=== PATIENT | female | born 1975 | race Hispanic/Latino ===

== ENCOUNTER 2017-04-08 12:45 | Day surgery (SDC) | payer OTHER ==
[~2017-04-08] VITALS: Ht 162.6 cm; Wt 93.0 kg
[~2017-04-08 12:45] MED LIST: 0.9% Sodium Chloride 1,000 ML IV SCH; NORE-74 PO; NORE-82 PO; OMEP20TA86 PO; Sodium Chloride LOK Flush 10 mL Syringe IV PRN; fentaNYL-PF 50 mCg/mL 2 mL Inj IVPUSH PRN
[2017-04-08 13:10] VITALS: BP 120/73; PULSE 80; RESP 17; O2SAT 98
[2017-04-08 14:34] VITALS: BP 116/69; PULSE 68; RESP 16; O2SAT 99
[2017-04-08 14:44] VITALS: BP 105/63; PULSE 60; RESP 16; O2SAT 100
[2017-04-08 14:50] VITALS: BP 103/73; PULSE 69; RESP 16; O2SAT 100
--- NOTE | 2017-04-08 18:03 | ENDO ---
[address] [address] ENDOSCOPY PROCEDURE PATIENT: ROSANGELA BEST : 1975 MR#: [id number] ADMIT: 04/08/2017 JOB ID: [id number] DATE: 04/08/2017 PROCEDURE: Esophagogastroduodenoscopy. INDICATION: Gastroesophageal reflux. Patient's ASA classification is I. Mallampati score is II. MEDICATIONS: Versed 6 mg, fentanyl 125 mcg. INSTRUMENT USED: GIF-H180J. PROCEDURE DETAILS: After informed consent was obtained, the patient was brought into the GI suite, where she was placed on oxygen via nasal cannula and monitored with continuous pulse oximeter, telemetry, and blood pressure monitoring. A time-out was performed. Then, she was placed in a left lateral decubitus position. Medications were administered for sedation. The standard EGD scope was then inserted through the bite block and advanced under direct visualization to the second portion of duodenum without difficulty. FINDINGS: 1. Normal-appearing duodenal bulb, first and second portion. 2. Normal-appearing pylorus, antrum, and gastric body. 3. Retroflexed views in the gastric body revealed a normal-appearing cardia and fundus. 4. Multiple random biopsies were obtained throughout the antrum and body of stomach. 5. Normal-appearing GE junction with a regular Z-line. 6. Normal-appearing esophagus. IMPRESSION: Normal esophagogastroduodenoscopy exam to second portion of duodenum. RECOMMENDATIONS: 1. Continue omeprazole daily. 2. Reflux precautions as discussed. 3. Weight loss was encouraged. COMPLICATIONS: None. ESTIMATED BLOOD LOSS: Less than 5 mL. PROCEDURE PERFORMED: Colonoscopy. INDICATION: Abdominal pain. Please see above for ASA classification, Mallampati score, and medications. INSTRUMENT USED: [id number]-H180AL. Prep quality was good. PROCEDURE DETAILS: After completion of the EGD exam, the patient was turned and then a digital rectal exam was performed which was unremarkable. The colonoscope was then inserted into the rectum and advanced under direct visualization to the cecum, which was identified by the presence of the ileocecal valve and appendiceal orifice. Once the cecum was reached, colonoscope was withdrawn back into the rectum as mucosa and lumen were examined. In the rectum, retroflexion was performed. Following retroflexion, remaining air in the rectum was suctioned, and procedure was completed. FINDINGS: Normal exam from rectum to cecum. IMPRESSION: Normal colonoscopy. RECOMMENDATIONS: Follow up in GI clinic. COMPLICATIONS: None. ESTIMATED BLOOD LOSS: Zero.
--- NOTE | 2017-04-12 11:33 | PATH ---
SURGICAL PATHOLOGY Attending Physician:Bruno Haley CASE STATUS: Signed Out PATIENT NAME: ROSANGELA BEST PID: [id number] : 1975 DATE COLLECTED:04/08/2017 00:00 SPECIMEN: Gastric, Biopsy CLINICAL HISTORY: 1). GASTRIC RANDOM BIOPSY - PLEASE ALSO TEST FOR H.PYLORI FINAL DIAGNOSIS: 1.RANDOM GASTRIC BIOPSIES:GASTRIC CORPUS AND ANTRUM WITH MILD CHRONIC ACTIVE GASTRITIS. Negative for Helicobacter organisms. Negative for intestinal metaplasia. No evidence of dysplasia or malignancy. [id number] GROSS DESCRIPTION: The specimen is received in formalin, labeled with the patient's name, sublabeled as gastric bx, and consists of multiple fragments of white-white glistening rubbery semitranslucent tissue (0.5 x 0.4 x 0.1 cm in aggregate). Section code: (A) tissue. Specimen entirely submitted. 04/10/17 JM MICRO DESCRIPTION: The lamina propria of the gastric corpus and antrum is expanded by modest numbers of acute and chronic inflammatory cells. An immunostain for Helicobacter organisms is done because of the acute inflammation and is negative. This test was developed and its performance characteristics determined by [facility]. It has not been cleared or approved by the [place]. Food and Drug Administration. The FDA has determined that such clearance or approval is not necessary. This test is used for clinical purposes. It should not be regarded as investigational or for research. ICD-9 CODES: CPT CODES: 1: 14773, 32925 Electronically Signed Out Marcelino Jarvis MD [facility] [address], [place] [address] Technical component performed at [facility], [address], [place], [address]
== END 2017-04-08 23:59 | disposition home or self-care (01) ==
LOC: END 12:45
PROVIDERS: ATTEND Internal Medicine Gastroenterology
DX: R10.84 Generalized abdominal pain (principal); K21.9 Gastro-esophageal reflux disease without esophagitis; K29.50 Unspecified chronic gastritis without bleeding; R19.5 Other fecal abnormalities
CPT/HCPCS: 43239; 45378; 99153; G0500; J2250; J3010; J7030